=== PATIENT | male | born 1935 | race Caucasian/White ===

== ENCOUNTER → 2017-09-23 | Outpatient (CLI) | payer MEDICARE ==
[~2017-09-23] MED LIST: ALLO300T PO; CEFT1PIG2 IV; ESOM40CA PO; HYDR25TA6 PO; LABE200T3 PO; POTA10TA6 PO; REGADENOSON 0.4 MG/5 ML SYRINGE ONE; SIMV20TA3 PO
== END | disposition home or self-care (01) ==
LOC: RAD 07:42
PROVIDERS: ATTEND Internal Medicine Cardiovascular Disease
DX: I25.10 Atherosclerotic heart disease of native coronary artery without angina pectoris (principal); I10 Essential (primary) hypertension; I45.10 Unspecified right bundle-branch block; I44.0 Atrioventricular block, first degree; Z95.1 Presence of aortocoronary bypass graft
CPT/HCPCS: 78452; 93017; A9502; J2785

== ENCOUNTER → 2017-10-02 | Outpatient (CLI) | payer MEDICARE ==
[~2017-10-02] MED LIST changes: +OMNIPAQUE 350 MG/ML, 150 ML BOTTLE ONE; -REGADENOSON 0.4 MG/5 ML SYRINGE ONE
== END | disposition home or self-care (01) ==
LOC: CFH 14:27
PROVIDERS: ATTEND Physician Assistant
DX: N40.0 Benign prostatic hyperplasia without lower urinary tract symptoms (principal); Q63.1 Lobulated, fused and horseshoe kidney; R31.21 Asymptomatic microscopic hematuria
CPT/HCPCS: 74178; Q9967

== ENCOUNTER → 2017-11-26 | Outpatient (CLI) | payer MEDICARE ==
[~2017-11-26] MED LIST changes: -OMNIPAQUE 350 MG/ML, 150 ML BOTTLE ONE
== END | disposition home or self-care (01) ==
LOC: CFH 12:00
PROVIDERS: ATTEND Nurse Practitioner Family
DX: K21.9 Gastro-esophageal reflux disease without esophagitis (principal); K22.2 Esophageal obstruction; K22.70 Barrett's esophagus without dysplasia
CPT/HCPCS: 71046

== ENCOUNTER → 2017-12-08 | Outpatient (CLI) | payer MEDICARE | END | disposition home or self-care (01) | LOC: CFH 11:11 | PROVIDERS: ATTEND Internal Medicine | DX: M16.12 Unilateral primary osteoarthritis, left hip (principal); M25.551 Pain in right hip; M54.5 Low back pain | CPT/HCPCS: 73523 ==

== ENCOUNTER 2018-03-10 06:46 | Observation (INO) | payer MEDICARE ==
[~2018-03-10] VITALS: Ht 177.8 cm; Wt 88.5 kg
[2018-03-10 07:30] LABS: BASOPHILS # (AUTO) 0.01 x10^3/uL (0-0.1); BASOPHILS % (AUTO) 0 % (0-1); EOSINOPHILS % (AUTO) 3 % (1-7); LYMPHOCYTES % (AUTO) 17 % (22-44); MD NO; MEAN CORPUSCULAR HEMOGLOBIN 34.5 pg (27.5-34.5); MEAN CORPUSCULAR HGB CONC 33.8 g/dL (33.2-36.2); MEAN PLATELET VOLUME 6.8 fL (7.4-10.4); MONOCYTES # (AUTO) 0.57 x10^3/uL (0.2-0.8); MONOCYTES % (AUTO) 9 % (2-9); NEUTROPHILS # (AUTO) 4.44 x10^3/uL (1.8-6.8); NEUTROPHILS % (AUTO) 70 % (42-75); PLATELET COUNT 209 x10^3/uL (130-400); RED BLOOD COUNT 4.93 x10^6/uL (4.38-5.82); RED CELL DISTRIBUTION WIDTH 16.4 % (9.4-14.8)
[2018-03-10 07:38] LABS: ALBUMIN 3.8 g/dL (3.4-5.0); ANION GAP 6 mmol/L (5-15); CHLORIDE 106 mmol/L (98-107); CREATININE 0.82 mg/dL (0.7-1.3)
[2018-03-10] MEDS ORDERED: SODIUM CHLORIDE FLUSH 10ML SYR IVF ONE (08:00)
[2018-03-10] MEDS ORDERED: ONDANSETRON 2MG/ML, 2ML IVPush PRN (09:30)
[2018-03-10 09:45] VITALS: BP 151/87
[2018-03-10 12:45] VITALS: BP 131/79
[2018-03-10] MEDS ORDERED: FENTANYL PF 100 MCG/2ML ONE (13:09)
[2018-03-10] MEDS ORDERED: MIDAZOLAM 1 MG/ML, 5ML ONE (13:09)
[2018-03-10 15:45] VITALS: BP 145/83
== END 2018-03-10 16:50 | disposition home or self-care (01) ==
LOC: ED 08:33 → EDIP 08:34 → ED 08:39 → 4NOR 09:48
PROVIDERS: ADMIT Internal Medicine; ATTEND Internal Medicine
DX: K22.2 Esophageal obstruction (principal); K44.9 Diaphragmatic hernia without obstruction or gangrene; K22.10 Ulcer of esophagus without bleeding; R13.11 Dysphagia, oral phase; K21.9 Gastro-esophageal reflux disease without esophagitis; J45.909 Unspecified asthma, uncomplicated; I25.10 Atherosclerotic heart disease of native coronary artery without angina pectoris; E03.9 Hypothyroidism, unspecified; E78.5 Hyperlipidemia, unspecified; I10 Essential (primary) hypertension; D12.6 Benign neoplasm of colon, unspecified; M10.9 Gout, unspecified; D75.89 Other specified diseases of blood and blood-forming organs; Z95.1 Presence of aortocoronary bypass graft; Z87.11 Personal history of peptic ulcer disease
CPT/HCPCS: 36415; 43239; 80048; 82040; 85025; 99152; 99153; 99285; G0378; J2250; J3010

== ENCOUNTER 2019-01-30 09:07 | Emergency (ER) | payer MEDICARE ==
[~2019-01-30] VITALS: Ht 177.8 cm; Wt 86.9 kg
[~2019-01-30 09:07] MED LIST changes: -LABE200T3 PO; +LABE200T6 PO
[2019-01-30 09:09] VITALS: BP 158/87
--- NOTE | 2019-01-30 09:53 | NUR ---
Patient/Caregiver given discharge instructions and they have confirmed that they understand the instructions. Patient ambulatory with steady gait.
== END 2019-01-30 09:54 | disposition home or self-care (01) ==
LOC: ED 09:37
DX: M54.16 Radiculopathy, lumbar region (principal); Z95.1 Presence of aortocoronary bypass graft; I10 Essential (primary) hypertension; E78.00 Pure hypercholesterolemia, unspecified; E03.9 Hypothyroidism, unspecified
CPT/HCPCS: 99283

== ENCOUNTER 2019-03-21 12:30 | Outpatient (CLI) | payer MEDICARE | END 2019-03-21 23:59 | disposition home or self-care (01) | LOC: CFH 12:30 | PROVIDERS: ATTEND Internal Medicine Cardiovascular Disease | DX: I10 Essential (primary) hypertension (principal); I45.0 Right fascicular block | CPT/HCPCS: 78452; 93017; A9502; J2785 ==

== ENCOUNTER → 2021-03-11 | Outpatient (CLI) | payer MEDICARE ==
[~2021-03-11] MED LIST changes: +SIMV20TA19 PO; -SIMV20TA3 PO
== END | disposition home or self-care (01) ==
LOC: CVU 08:41
PROVIDERS: ATTEND Internal Medicine Clinical Cardiac Electrophysiology
DX: I08.0 Rheumatic disorders of both mitral and aortic valves (principal); Z95.1 Presence of aortocoronary bypass graft
CPT/HCPCS: 93306